=== PATIENT | female | born 1990 | race American Indian/Alaskan Native ===

== ENCOUNTER 2017-03-03 01:15 | Inpatient (IN) | payer OTHER ==
[2017-03-03 02:08] LABS: Urine Bacteria Absent (Absent); Urine Bilirubin Negative (Negative); Urine Glucose Negative (Negative); Urine Nitrite Negative (Negative)
[2017-03-03 02:17] LABS: Benzodiazepine Urine Screen None Detected (None Detect)
[2017-03-03 02:46] LABS: Hematocrit 45 % (35-47); Mean Corpuscular HGB Conc 34 g/dl (31-36); Mean Corpuscular Hemoglobin 30 pg (27-31); Mean Corpuscular Volume 88 fL (80-97); Mean Platelet Volume 8 um3 (7.4-10.4); Red Blood Count 5.07 10^6/ul (4.0-5.4); Red Cell Distribution Width 13 % (10.5-15)
[2017-03-03 02:51] LABS: ALT 14 U/L (7-52); AST 14 U/L (13-39); Acetaminophen < 15 mcg/mL; Albumin 4.4 g/dL (3.2-5.2); Alcohol < 10 mg/dL (<10); Alkaline Phosphatase 90 U/L (34-104); Anion Gap 11 mmol/L (2-11); BUN/Creatinine Ratio 11.7 (8-20); Blood Urea Nitrogen 9 mg/dL (6-24); CO2 Carbon Dioxide 23 mmol/L (22-32); Calcium 9.8 mg/dL (8.6-10.3); Chloride 101 mmol/L (101-111); EGFR African American 118.4 (>60); EGFR Non-African American 92.1 (>60); Globulin 3.8 g/dL (2-4); Glucose 101 mg/dL (70-100); Potassium 3.1 mmol/L (3.5-5.0); Salicylate < 2.50 mg/dL (<30); Sodium 135 mmol/L (133-145); Total Protein 8.2 g/dL (6.4-8.9)
--- NOTE | 2017-03-03 02:53 | ED ---
Jaime Garcia Benjamin, scribed for Jake Pride MD on 03/03/17 at 0143 . Psychiatric Complaint - HPI Summary HPI Summary: 26yo female brought in by police under 941. Pt posted suicidal thoughts on social media. Pt denies SI currently. Pt is dxed with brain CA and currently undergoing radiational therapy. She is also 16 weeks . Pt states that she is not on care. - History Of Current Complaint Chief Complaint: EDMentalHealth Time Seen by Provider: 03/03/17 01:22 Hx Obtained From: Patient Hx Last Menstrual Period: 11/2015 ?: Yes Onset/Duration: Lasting Minutes, Resolved Timing: Intermittent Episode Lasting Severity Initially: Mild Severity Currently: Mild Character: Depressed Aggravating Factor(s): Nothing Alleviating Factor(s): Nothing - Allergies/Home Medications Allergies/Adverse Reactions: Allergies Allergy/AdvReac Type Severity Reaction Status Date / Time Amoxicillin [From Augmentin] Allergy Hives Verified 08/13/16 15:03 Clavulanic Acid Allergy Hives Verified 08/13/16 15:03 [From Augmentin] Penicillins [PCN] Allergy Hives Verified 08/13/16 15:03 PMH/Surg Hx/FS Hx/Imm Hx Endocrine/Hematology History: Denies: Hx Diabetes, Hx Thyroid Disease Cardiovascular History: Denies: Hx Hypertension Respiratory History: Denies: Hx Asthma, Hx Chronic Obstructive Pulmonary Disease (COPD) GI History: Denies: Hx Ulcer Neurological History: Reports: Hx Migraine Psychiatric History: Reports: Hx Anxiety - Surgical History Surgery Procedure, Year, and Place: tonsils and adenoids removed, bx of mole Infectious Disease History: Denies: Hx Hepatitis, Hx Human Immunodeficiency Virus (HIV), Hx of Known/ Suspected MRSA, Hx Shingles, Hx Tuberculosis, Hx Known/Suspected VRE, Hx Known/ Suspected VRSA, History Other Infectious Disease, Traveled Outside the [place] in Last 30 Days - Family History Known Family History: Positive: Hypertension - Social History Occupation: Unemployed Lives: With Family Alcohol Use: None Substance Use Type: Reports: None Hx Tobacco Use: No Smoking Status (MU): Never Smoked Tobacco Review of Systems Constitutional: Negative Eyes: Negative ENT: Negative Cardiovascular: Negative Respiratory: Negative Gastrointestinal: Negative Genitourinary: Negative Musculoskeletal: Negative Skin: Negative Neurological: Negative Positive: Depressed, Other - SI All Other Systems Reviewed And Are Negative: Yes Physical Exam Triage Information Reviewed: Yes Vital Signs On Initial Exam: Initial Vitals Temp Pulse Resp BP Pulse Ox 99 F 92 18 148/105 98 03/03/17 01:17 03/03/17 01:17 03/03/17 01:17 03/03/17 01:03/03/17 01:17 Vital Signs Reviewed: Yes Appearance: Positive: Well-Appearing, No Pain Distress Skin: Positive: Warm Head/Face: Positive: Normal Head/Face Inspection Eyes: Positive: EOMI, KEELY ENT: Positive: Hearing grossly normal Neck: Positive: Supple Respiratory/Lung Sounds: Positive: Clear to Auscultation, Breath Sounds Present Cardiovascular: Positive: RRR Abdomen Description: Positive: Nontender, Soft Bowel Sounds: Positive: Present Musculoskeletal: Positive: Strength/ROM Intact Neurological: Positive: Alert, Oriented to Person Place, Time, Normal Gait Psychiatric: Positive: Anxious Diagnostics - Vital Signs Vital Signs Temp Pulse Resp BP Pulse Ox 03/03/17 01:17 99 F 92 18 148/105 98 - Laboratory Lab Results: Lab Results 03/03/17 03/03/17 03/03/17 Range/Units 01:40 01:40 02:16 WBC 12.0 H (3.5-10.8) 10^3/ul RBC 5.07 (4.0-5.4) 10^6/ul Hgb 15.0 (12.0-16.0) g/dl Hct 45 (35-47) % MCV 88 (80-97) fL MCH 30 (27-31) pg MCHC 34 (31-36) g/dl RDW 13 (10.5-15) % Plt Count 339 (150-450) 10^3/ul MPV 8 (7.4-10.4) um3 Neut % (Auto) 72.4 (38-83) % Lymph % (Auto) 21.6 L (25-47) % [place] % (Auto) 5.0 (1-9) % Eos % (Auto) 0.4 (0-6) % Baso % (Auto) 0.6 (0-2) % Absolute Neuts (auto) 8.7 H (1.5-7.7) 10^3/ul Absolute Lymphs (auto) 2.6 (1.0-4.8) 10^3/ul Absolute Monos (auto) 0.6 (0-0.8) 10^3/ul Absolute Eos (auto) 0 (0-0.6) 10^3/ul Absolute Basos (auto) 0.1 (0-0.2) 10^3/ul Absolute Nucleated RBC 0.02 10^3/ul Nucleated RBC % 0.2 Sodium (133-145) mmol/L Potassium (3.5-5.0) mmol/L Chloride (101-111) mmol/L Carbon Dioxide (22-32) mmol/L Anion Gap (2-11) mmol/L BUN (6-24) mg/dL Creatinine (0.51-0.95) mg/dL Est GFR ( Amer) (>60) Est GFR (Non-Af Amer) (>60) BUN/Creatinine Ratio (8-20) Glucose (70-100) mg/dL Calcium (8.6-10.3) mg/dL Total Bilirubin (0.2-1.0) mg/dL AST (13-39) U/L ALT (7-52) U/L Alkaline Phosphatase (34-104) U/L Total Protein (6.4-8.9) g/dL Albumin (3.2-5.2) g/dL Globulin (2-4) g/dL Albumin/Globulin Ratio (1-3) TSH Beta HCG, Quant Urine Color Yellow Urine Appearance Cloudy Urine pH 6.0 (5-9) Ur Specific [place] 1.018 (1.010-1.030) Urine Protein Negative (Negative) Urine Ketones 1+ H (Negative) Urine Blood Negative (Negative) Urine Nitrate Negative (Negative) Urine Bilirubin Negative (Negative) Urine Urobilinogen Negative (Negative) Ur Leukocyte Esterase 1+ H (Negative) Urine WBC (Auto) Trace(0-5/hpf) (Absent) Urine RBC (Auto) Trace(0-2/hpf) (Absent) Ur Squamous Epith Cells Present H (Absent) Urine Bacteria Absent (Absent) Urine Glucose Negative (Negative) Salicylates (<30) mg/dL Urine Opiates Screen None detected (None Detect) Acetaminophen mcg/mL Ur Barbiturates Screen None detected (None Detect) Ur Phencyclidine Scrn None detected (None Detect) Ur Amphetamines Screen None detected (None Detect) U Benzodiazepines Scrn None detected (None Detect) Urine Cocaine Screen None detected (None Detect) U Cannabinoids Screen None detected (None Detect) Serum Alcohol (<10) mg/dL 03/03/17 Range/Units 02:16 WBC (3.5-10.8) 10^3/ul RBC (4.0-5.4) 10^6/ul Hgb (12.0-16.0) g/dl Hct (35-47) % MCV (80-97) fL MCH (27-31) pg MCHC (31-36) g/dl RDW (10.5-15) % Plt Count (150-450) 10^3/ul MPV (7.4-10.4) um3 Neut % (Auto) (38-83) % Lymph % (Auto) (25-47) % [place] % (Auto) (1-9) % Eos % (Auto) (0-6) % Baso % (Auto) (0-2) % Absolute Neuts (auto) (1.5-7.7) 10^3/ul Absolute Lymphs (auto) (1.0-4.8) 10^3/ul Absolute Monos (auto) (0-0.8) 10^3/ul Absolute Eos (auto) (0-0.6) 10^3/ul Absolute Basos (auto) (0-0.2) 10^3/ul Absolute Nucleated RBC 10^3/ul Nucleated RBC % Sodium 135 (133-145) mmol/L Potassium 3.1 L (3.5-5.0) mmol/L Chloride 101 (101-111) mmol/L Carbon Dioxide 23 (22-32) mmol/L Anion Gap 11 (2-11) mmol/L BUN 9 (6-24) mg/dL Creatinine 0.77 (0.51-0.95) mg/dL Est GFR ( Amer) 118.4 (>60) Est GFR (Non-Af Amer) 92.1 (>60) BUN/Creatinine Ratio 11.7 (8-20) Glucose 101 H (70-100) mg/dL Calcium 9.8 (8.6-10.3) mg/dL Total Bilirubin 1.20 H (0.2-1.0) mg/dL AST 14 (13-39) U/L ALT 14 (7-52) U/L Alkaline Phosphatase 90 (34-104) U/L Total Protein 8.2 (6.4-8.9) g/dL Albumin 4.4 (3.2-5.2) g/dL Globulin 3.8 (2-4) g/dL Albumin/Globulin Ratio 1.2 (1-3) TSH Pending Beta HCG, Quant Pending Urine Color Urine Appearance Urine pH (5-9) Ur Specific [place] (1.010-1.030) Urine Protein (Negative) Urine Ketones (Negative) Urine Blood (Negative) Urine Nitrate (Negative) Urine Bilirubin (Negative) Urine Urobilinogen (Negative) Ur Leukocyte Esterase (Negative) Urine WBC (Auto) (Absent) Urine RBC (Auto) (Absent) Ur Squamous Epith Cells (Absent) Urine Bacteria (Absent) Urine Glucose (Negative) Salicylates < 2.50 (<30) mg/dL Urine Opiates Screen (None Detect) Acetaminophen < 15 mcg/mL Ur Barbiturates Screen (None Detect) Ur Phencyclidine Scrn (None Detect) Ur Amphetamines Screen (None Detect) U Benzodiazepines Scrn (None Detect) Urine Cocaine Screen (None Detect) U Cannabinoids Screen (None Detect) Serum Alcohol < 10 (<10) mg/dL Result Diagrams: 03/03/17 02:16 03/03/17 02:16 Lab Statement: Any lab studies that have been ordered have been reviewed, and results considered in the medical decision making process. Re-Evaluation - Re-Evaluation First Eval Comment: pt seen and evaluated by crisis Course/Dx - Course Course Of Treatment: Medically cleared for Mental Health Evaluation at 0301. - Differential Dx/Clinical Impression Provider Diagnosis: Psychosis Discharge - Discharge Plan Condition: Fair Disposition: ADMITTED TO [facility] Referrals: Randy Monroe MD [Primary Care Provider] - The documentation as recorded by the Jaime pool Benjamin accurately reflects the service I personally performed and the decisions made by me, Jake Pride MD.
[2017-03-03 03:01] LABS: TSH (Thyroid Stimulating Horm) 0.75 mcIU/mL (0.34-5.60)
[2017-03-03] MEDS ORDERED: Al Hydrox/Mg Hydrox/Simet LIQ* 30 ML UDC PO PRN (05:57)
[2017-03-03] MEDS ORDERED: Acetaminophen TAB* 325 MG PO PRN (05:57)
[2017-03-03] MEDS ORDERED: chlorproMAZINE TAB* 50 MG Q6H PRN AGITATION PO (05:58)
[2017-03-03] MEDS: Vitamin THERAPEUTIC TAB PO SCH (10:13)
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
[2017-03-04 07:57] VITALS: BP 118/75
[2017-03-04] MEDS: Vitamin THERAPEUTIC TAB PO SCH (09:12)
--- NOTE | 2017-03-04 11:41 | DS ---
Subjective - Subjective Service Types: 72407 Hosp DC Day Mgmt simple under 30 min Subjective: Patient reports her mood as "fine" today. 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 Per conversation with mom again this morning, patient is not suicidal and frequently posts lines from her writings to Facebook. Patient reports her roommate was out of line in calling authorities. Patient again reports no SI/HI and no AH/VH. Patient informed of her lab results done in the ED, in particular that her Urine b-hcg was NEG. Patient stated she'd had a recent u/s but was unable to name where it was performed. Patient reports feeling upset by the news, but her report was not associated with change in affect. When asked if patient feels safe for discharge. Patient stated, "I never felt unsafe". Objective - Appearance Appearance: Well Developed/Nourished Dysmorphic Features: No Hygiene: Normal Grooming: Well Kept - Behavior Psychomotor Activities: Normal Exhibits Abnormal Movement: No - Attitude and Relatedness Attitude and Relatedness: Cooperative Eye Contact: Good - Speech Quality: Unpressured Latencies: Normal Quantity: Appropriate - Mood Patient's Decription of Mood: "Fine" - Affect Observed Affect: Fair Affect Consistent with: Euthymia - Thought Process Patient's Thought Process: Coherent Thought Content: No Passive Wish, No Suicidal Planning, No Homicidal Ideation, No Paranoid Ideation - Sensorium Experiencing Hallucinations: No, Sensorium is Clear Type of Hallucinations: Visual: No, Auditory: No, Command: No - Level of Consciousness Level of Consciousness: Alert Orientation: Yes Intact, Yes Orientated to Time, Yes Orientated to Place, Yes Orientated to Person - Impulse Control Impulse Control: Intact - Insight and Judgement Insight and Judgement: Fair - Group Participation Particating in Group Activities: Yes - Medication Management Medication Management Adherence: No Treatment Course & Assessment Clinical Course & Impression: Patient admitted [facility] from the [facility] where she was escorted by police after they were called patient's roommate after he noticed suicidal statements in a Facebook post made by patient. Patient adamantly denied suicidal ideations, intent, or desire to hurt herself. 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 Patient reported the quote was from a character from the book she is currently writing. After gathering collateral information from her mother and sister, as well from observation of patient on the unit, patient will be discharged. Patient's mother will transport patient home. Patient has no mood, anxiety, or psychotic symptoms which necessitate further inpatient hospitalization. Patient has reported no SI/HI or AH/VH since admission. She has reported to this provider and staff being (+) for HIV, having a recent brain cancer diagnosis, and being 16 weeks . Patient is not and was informed of ED Urine beta-hcg results. MMPI completed on the unit noted high fabrication. Patient declined CT of Head, request to speak with roommate, and GERARD for medical records. Clear for Discharge: Acceptable Safety Profile, Low Utility of Inpt Care Inpatient DSM-IV Dx: 1. Borderline Personality d/o Discharge Planning - Discharge Planning Discharge Plan: Outpatient Follow Up Outpatient Program[facility] Recommendations for Continuing Care: Psychotherapy Medications: Current Medications DISCHARGE MEDICATIONS: None Discharge Planning: Prescriptions provided for discharge [x] Yes [] No Follow up care details as per social work arrangements. Patient response to discharge plan: [] eager for discharge [x] agreeable with discharge plan [] ambivalent about discharge [] disagrees with discharge today
== END 2017-03-04 11:40 | disposition home or self-care (01) | DRG 752 ==
LOC: ED 01:15 → BSU 08:22
PROVIDERS: ADMIT Internal Medicine; ATTEND Internal Medicine
DX: F60.3 Borderline personality disorder (principal); F41.9 Anxiety disorder, unspecified; G43.909 Migraine, unspecified, not intractable, without status migrainosus; Z62.810 Personal history of physical and sexual abuse in childhood; Z91.410 Personal history of adult physical and sexual abuse; Z88.0 Allergy status to penicillin; Z88.1 Allergy status to other antibiotic agents; Z91.018 Allergy to other foods; Z81.1 Family history of alcohol abuse and dependence; Z81.8 Family history of other mental and behavioral disorders; Z56.0 Unemployment, unspecified; Z82.49 Family history of ischemic heart disease and other diseases of the circulatory system
CPT/HCPCS: 36415; 80053; 80307; 80320; 80329; 81003; 81015; 84443; 84702; 85025; 87086; 99222; 99238; G0480